=== PATIENT | male | born 1965 | race Caucasian/White ===

== ENCOUNTER 2023-07-22 09:36 | Day surgery (SDC) | payer MEDICARE ==
[2023-07-22] MEDS ORDERED: Depo-Medrol 40 MG/ML IM ONE (09:37)
[2023-07-22] MEDS ORDERED: Sodium Chloride 0.9(Preservative Free) 10 ML IJ ONE (09:37)
[2023-07-22] MEDS ORDERED: LIDOCAINE HCL 1% 50 MG/5 ML VL PF IJ ONE (09:37)
[2023-07-22] MEDS ORDERED: DIPRIVAN 200 MG/20 ML IV ONE (10:36)
[2023-07-22] MEDS ORDERED: Versed 2 MG/2 ML Injection ONE (10:36)
[2023-07-22] MEDS ORDERED: Lactated Ringers 1,000 ML IV ONE (11:18)
--- NOTE | 2023-07-22 12:08 | XRAY ---
Indication: Thoracic ECHO. Intraoperative fluoroscopy provided for 26 seconds. 5 digital spot image submitted for interpretation demonstrates posterior needle tip projecting approximately T10 . Small amount of contrast injected for needle tip placement. Correlate with intraoperative findings/report.
--- NOTE | 2023-07-22 12:10 | XRAY ---
26 seconds of fluoroscopy was used in surgery for a T10-T11 ECHO.
== END 2023-07-22 11:05 | disposition home or self-care (01) ==
LOC: SDC-PAIN 09:36
PROVIDERS: ATTEND Psychiatry & Neurology Pain Medicine
DX: M54.14 Radiculopathy, thoracic region (principal); Z79.899 Other long term (current) drug therapy
CPT/HCPCS: 62321; 72072; 77003; 82947; J1030; J2001; J2250; J2704; Q9966

== ENCOUNTER 2023-10-01 07:13 | Day surgery (SDC) | payer MEDICARE ==
[2023-10-01] MEDS ORDERED: BUPIVACAINE 0.5% VIAL IJ ONE (07:14)
[2023-10-01] MEDS ORDERED: Depo-Medrol 40 MG/ML IM ONE (07:14)
[2023-10-01] MEDS ORDERED: DIPRIVAN 200 MG/20 ML IV ONE (09:24)
--- NOTE | 2023-10-01 10:59 | XRAY ---
Indication: Left intercostal nerve block. Intraoperative fluoroscopy provided for 13 seconds. 2 digital spot image submitted for interpretation demonstrates needle tip projecting lateral to unknown inferior left lower ribs. Correlate with intraoperative findings/report.
--- NOTE | 2023-10-01 13:06 | XRAY ---
13 seconds of fluoroscopy was used in surgery for a left intercostal nerve block.
[2023-10-01] MEDS ORDERED: Lactated Ringers 1,000 ML IV ONE (16:14)
== END 2023-10-01 09:54 | disposition home or self-care (01) ==
LOC: SDC-PAIN 07:13
PROVIDERS: ATTEND Psychiatry & Neurology Pain Medicine
DX: R07.81 Pleurodynia (principal); E11.9 Type 2 diabetes mellitus without complications; Z79.899 Other long term (current) drug therapy
CPT/HCPCS: 64420; 64421; 71100; 77002; 82947; J1030; J2704